=== PATIENT | female | born 1965 ===

== ENCOUNTER 2020-04-21 06:19 | Day surgery (SDC) | payer OTHER ==
[~2020-04-21 06:19] MED LIST: CALCIU PO; SEPTRA PO; VITAMIN D3 PO
== END 2020-04-21 14:00 | disposition home or self-care (01) ==
LOC: CIR.AMB 06:19
PROVIDERS: ATTEND Specialist
DX: N61.1 Abscess of the breast and nipple (principal); Z20.828 Contact with and (suspected) exposure to other viral communicable diseases